=== PATIENT | male | born 1995 | race Caucasian/White ===

== ENCOUNTER 2017-07-30 00:45 | Emergency (ER) | payer SELFPAY ==
[2017-07-30 00:47] VITALS: BP 128/82
--- NOTE | 2017-07-30 00:50 | ER Report ---
History and Physical Time Seen By MD: 00:47 Hx. 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 He is here with [employer] for custodial clearance. Has been drinking tonight. Found passed out in the street. He is alert but intoxicated. He has no complaints of pain or injury or medical problems other than some left ear pain chronically. Allergies: Coded Allergies: No Known Drug Allergies (Unverified , 07/30/17) Home Meds No Active Prescriptions or Reported Meds Reviewed Nurses Notes: Yes Constitutional Vital Sign - Last 24 Hours 07/30/17 00:47 Temp 97.8 Pulse 88 Resp 19 B/P (MAP) 128/82 Pulse Ox 94 O2 Delivery Room Air Physical Exam General Appearance: The patient is alert, has no immediate need for airway protection, is intoxicated but alert and cooperative. Eyes: Pupils equal and round, no injection. ENT: Normal oral mucosa. Moist mucous membranes. Tympanic membranes are normal. Neck: Neck is supple and non tender. Respiratory: Chest is non tender, lungs are clear to auscultation. Cardiac: regular rate and rhythm Gastrointestinal: Abdomen is soft and non tender, no masses, bowel sounds normal. Musculoskeletal: Extremities have full range of motion. Non tender. Skin: No rashes or lesions. DIFFERENTIAL DIAGNOSIS: After history and physical exam differential diagnosis was considered for alcohol intoxication Medical Decision Making ED Course/Re-evaluation ED Course Clear to go with police department to [facility] Decision to Disposition Date: Jul 30, 2017 Decision to Disposition Time: 00:54 Depart Departure Latest Vital Signs Vital Signs Date Time Temp Pulse Resp B/P (MAP) Pulse Ox O2 Delivery O2 Flow Rate FiO2 07/30/17 00:47 97.8 88 19 128/82 94 Room Air Impression: Primary Impression: Alcohol intoxication Condition: Improved Disposition: [facility] TO NURSING HOME/CORRECTIONAL F New Scripts No Active Prescriptions or Reported Meds Patient Instructions: Alcohol Intoxication (ED) OANH GARCIA MD Jul 30, 2017 00:49
== END 2017-07-30 00:55 ==
LOC: ER 00:47
DX: F10.920 Alcohol use, unspecified with intoxication, uncomplicated (principal)
CPT/HCPCS: 99281